=== PATIENT | female | born 1985 | race Caucasian/White ===

== ENCOUNTER 2018-09-24 12:45 | Emergency (ER) | payer MEDICAID ==
[~2018-09-24] VITALS: Ht 149.9 cm; Wt 54.6 kg
[2018-09-24 12:48] VITALS: BP 124/60; PULSE 88; RESP 18; Ht 149.9 cm; Wt 54.6 kg
[2018-09-24] MEDS ORDERED: PROM6.2515 PO (14:02)
[2018-09-24] MEDS ORDERED: BENZ-6 PO (14:02)
--- NOTE | 2018-09-24 14:12 | ERD ---
ER Documentation Chief Complaint Chief Complaint DRY COUGH X 10 DAYS HPI 33-year-old Cuban-speaking female presents to the ED complaining of intermittent cough x10 days. Patient states her cough is worse at nighttime. She denies any associated shortness of breath, chest tightness, chest pain or wheezing. She denies any fevers. She has some congestion and sore throat but otherwise denies any other symptoms. She has been taking [id number]-[id number] cough medications without any relief. She is here with her 2 kids who have similar symptoms. No history of smoking. ROS All systems reviewed and are negative except as per history of present illness. Medications Home Meds Active Scripts Promethazine Hcl* (Promethazine Hcl* Syrup) 6.25 Mg/5 Ml Syrup, 6.25 MG PO Q6H PRN for COUGH for 7 Days, ML Prov:ALBANIGRIKIANZEPYUR N PA-C 09/24/18 Benzonatate* (Tessalon Perle*) 100 Mg Capsule, 100 MG PO Q8H PRN for COUGH, #14 CAP Prov:ALBANIGRIKIANKENNUR N PA-C 09/24/18 PMhx/Soc Medical and Surgical Hx: pt denies Medical Hx, pt denies Surgical Hx Hx Alcohol Use: No Hx Substance Use: No Hx Tobacco Use: No Smoking Status: Never smoker Physical Exam Vitals Vital Signs Date Temp Pulse Resp B/P (MAP) Pulse Ox O2 O2 Flow FiO2 Time Delivery Rate 09/24/18 98.1 88 18 124/60 98 12:48 (81) Physical Exam Const: No acute distress Head: Atraumatic Eyes: Normal Conjunctiva. EOMI. PERRL ENT: Normal External Ears, Nose and Mouth. + Mild posterior OP erythema. No tonsillar edema or exudates. Neck: Full range of motion. No meningismus. No lymphadenopathy Resp: Clear to auscultation bilaterally. No rhonchi, wheezes, rales. Cardio: Regular rate and rhythm, no murmurs Ext: No cyanosis, or edema Neur: Awake and alert Psych: Normal Mood and Affect Procedures/MDM MEDICAL DECISION MAKING: Pt is an otherwise healthy 33-year-old patient who presents with URI type symptoms, likely viral in etiology. Pt is nontoxic appearing, well hydrated and tolerating PO. No signs of hypoxia or acute respiratory distress. I have low clinical suspicion for pneumonia or significant bacterial disease. Pt will be treated with outpatient supportive care; no indications for antibiotics at this time. Recommend following up with ship mate in 2-4 days, otherwise return to the ED for worsening fevers, difficulty breathing, difficulty swallowing or any other concern. PRESCRIPTIONS: Tessalon Perles, promethazine syrup SPECIALIST FOLLOW UP RECOMMENDED: None Patient has been advised to follow up with primary care in 1-2 days. Departure Diagnosis: Primary Impression: URI (upper respiratory infection) URI type: unspecified URI Qualified Codes: J06.9 - Acute upper respiratory infection, unspecified Condition: Stable Patient Instructions: Preventing Common Respiratory Infections Referrals: [facility] YOU HAVE RECEIVED A MEDICAL SCREENING EXAM AND THE RESULTS INDICATE THAT YOU DO NOT HAVE A CONDITION THAT REQUIRES URGENT TREATMENT IN THE EMERGENCY DEPARTMENT. FURTHER EVALUATION AND TREATMENT OF YOUR CONDITION CAN WAIT UNTIL YOU ARE SEEN IN YOUR DOCTORS OFFICE WITHIN THE NEXT 1-2 DAYS. IT IS YOUR RESPONSIBILITY TO MAKE AN APPOINTMENT FOR FOLOW-UP CARE. IF YOU HAVE A PRIMARY DOCTOR --you should call your primary doctor and schedule an appointment IF YOU DO NOT HAVE A PRIMARY DOCTOR YOU CAN CALL OUR PHYSICIAN REFERRAL HOTLINE AT IF YOU CAN NOT AFFORD TO SEE A PHYSICIAN YOU CAN CHOSE FROM THE FOLLOWING [facility] [address] [facility]. [facility] [address] [facility] [facility] [address] [facility] [address] [facility] [address] [facility]. [facility]. [address] [facility]. [facility] YOU HAVE RECEIVED A MEDICAL SCREENING EXAM AND THE RESULTS INDICATE THAT YOU DO NOT HAVE A CONDITION THAT REQUIRES URGENT TREATMENT IN THE EMERGENCY DEPARTMENT. FURTHER EVALUATION AND TREATMENT OF YOUR CONDITION CAN WAIT UNTIL YOU ARE SEEN IN YOUR DOCTORS OFFICE WITHIN THE NEXT 1-2 DAYS. IT IS YOUR RESPONSIBILITY TO MAKE AN APPOINTMENT FOR FOLOW-UP CARE. IF YOU HAVE A PRIMARY DOCTOR --you should call your primary doctor and schedule and appointment IF YOU DO NOT HAVE A PRIMARY DOCTOR YOU CAN CALL OUR PHYSICIAN REFERRAL HOTLINE AT . IF YOU CAN NOT AFFORD TO SEE A PHYSICIAN YOU CAN CHOSE FROM THE FOLLOWING [facility] INSTITUTIONS: [facility] [id number] [place] [id number] [facility] [address] [place] [address] [facility] [address] [place] [address] [facility] Additional Instructions: Paciente aconseja volver a Departamento de urgencias inmediatamente para sntomas nuevos o que empeoran . Paciente aconseja posteriores con el PCP en 1-2 tobias. Si el paciente no tiene ninguna de atencin primaria pueden seguir con [facility] [address] [place] [address] o [facility] [address] [place] [id number] STEVE HECTOR PA-C Sep 24, 2018 14:12
== END 2018-09-24 14:03 | disposition home or self-care (01) ==
LOC: FTE 12:45
DX: J06.9 Acute upper respiratory infection, unspecified (principal)
CPT/HCPCS: 99283